=== PATIENT | female | born 1990 | race Two or more races ===

== ENCOUNTER 2025-04-23 12:14 | Inpatient (IN) | payer MEDICAID, SELFPAY ==
[2025-04-23] VITALS (26 sets, daily range): BP systolic 132–182; BP diastolic 84–107; PULSE 74–97; RESP 18–99; TEMP 36.8; BMI 33.0
--- NOTE | 2025-04-23 12:36 | XR_ITS ---
Examination: age Limited TECHNIQUE: Limited transabdominal sonographic images pelvis Date and time: April 15, 2025 1253 hours INDICATIONS: -induced hypertension today. FINDINGS: Viable intrauterine gestation vertex presentation Cardiac motion 152 BPM Amniotic fluid index 2.0 cm Estimated weight 3320.7 g Estimated gestational age 38 weeks 0 days IMPRESSION: Viable intrauterine gestation vertex presentation
[2025-04-23 13:02] LABS: Basophils % (Auto) 0 % (0-2.5); Eosinophils # (Auto) 0.3 Thou/mm3 (0.0-0.5); Eosinophils % (Auto) 3 % (0-10); Hemoglobin 12.4 g/dL (12.0-16.0); Immature Granulocytes % (Auto) 1 % (0-0); Immature Granulocytes Auto 0.04 Thou/mm3 (0.00-0.00); Lymphocytes % (Auto) 23 % (10-50); Mean Corpuscular HGB Conc 35.4 g/dl (31.0-37.0); Mean Corpuscular Hemoglobin 30.7 pg (25.0-35.0); Mean Corpuscular Volume 87 fL (80-100); Monocytes # (Auto) 0.9 Thou/mm3 (0.0-0.8); Monocytes % (Auto) 10 % (0-12); Neutrophils # (Auto) 5.6 Thou/mm3 (1.8-7.7); Neutrophils % (Auto) 63 % (37-80); Nucleated Red Blood Cell % 0 /100 WBC (0); Platelet Count 225 Thou/mm3 (140-440); RDW Standard Deviation 44.7 fL (36.4-46.3); Red Blood Count 4.04 Miln/mm3 (4.00-5.20); White Blood Count 8.9 Thou/mm3 (3.6-11.0)
[2025-04-23 13:19] LABS: Alanine Aminotransferase 13 U/L (10-49); Albumin, Serum 3.9 gm/dL (3.5-5.0); Albumin/Globulin Ratio 1.3 (1.2-2.2); Alkaline Phosphatase 124 U/L (46-116); Anion Gap 12 (7-16); Aspartate Amino Transferase 21 U/L (0-34); BUN/Creatinine Ratio 13 Ratio (12-20); Bilirubin,Total 0.2 mg/dL (0.3-1.2); Blood Urea Nitrogen 9 mg/dL (9-23); Calcium 9.5 mg/dL (8.3-10.6); Calcium (Corrected) 9.6 mg/dL (8.5-10.1); Carbon Dioxide 20.7 mMol/L (20.0-31.0); Chloride 106 mMol/L (98-107); Creatinine (Component) 0.7 mg/dL (0.6-1.3); Estimated Creatinine Clearance 124.5 mL/min (>60); Glucose 88 mg/dL (74-106); LDH (Lactate Dehydrogenase) 192 U/L (120-246); Osmolality,Calculated 275 (275-295); Potassium 3.8 mMol/L (3.4-5.1); Sodium 139 mMol/L (136-145); Total Protein 6.9 gm/dL (5.7-8.2); Uric Acid 5.3 mg/dL (3.1-7.8); eGFR > 60 See Note
[2025-04-23 13:20] LABS: Fibrinogen 494 mg/dL (175-375); INR 0.9 (0.9-1.3); Partial Thromboplastin Time 26.4 Seconds (22.0-36.0); Prothrombin Time 10.3 Seconds (9.0-12.2)
[2025-04-23] MEDS: RINGERS LACTATED 1000 ML 1,000 ML 100 ML IV ×2 (13:52→18:33)
[2025-04-23 14:09] LABS: Collection Type, Urine Clean Catch
[2025-04-23] MEDS: MISOPROSTOL 50 mCg TABLET PO ×3 (14:26→23:03)
[2025-04-23] MEDS: LABETALOL 100 MG TABLET PO (14:26)
[2025-04-23 14:34] LABS: Amorphous Crystals,Urine Present (Absent); Bacteria,Urine 1+; Bilirubin,Urine Negative (Negative); Blood,Urine Negative (Negative); Calcium Oxalate Crystals,Urine Rare; Clarity,Urine Clear (Clear/Hazy); Color,Urine Yellow (Lt Yel-Yel); Glucose, Urine Negative (Negative); Ketones,Urine Negative (Negative); Leukocyte Esterase,Urine Positive (Negative); Nitrite,Urine Negative (Negative); PH,Urine 6.5 (5.0-7.0); Protein,Urine Negative (Neg - Trace); RBC,Urine 6 /hpf (0-3); Specific Gravity,Urine 1.024 (1.001-1.035); Squamous Epithelial Cell,Urine 13 /hpf (0-5); Urobilinogen,Urine Negative mg/dL (0.0-1.0); WBC,Urine 3 /hpf (0-5)
[2025-04-23 14:50] LABS: Syphilis Nonreactive (Nonreactive)
--- NOTE | 2025-04-23 18:34 | ESHP_ITS ---
Documentation for date of: 04/23/25 OB Labor/Induct. HPI History of Present Illness Chief complaint: Patient sent over from office for elevated blood pressures : 5 Para: 3 Term pregnancies: 3 pregnancies: 0 Living children: 3 History of Abortions: Spontaneous and Elective: 1 History of Vaginal deliveries: 3 History of sections: No History of : No RONEY: 05/11/25 Gestational Age (weeks): 37 Gestational Age (days): 3 Indication for induction: other (Elevated blood pressures in OB triage, JAMILAH of 2) History of present illness: Patient is a 34-year-old -0-1-3 all care uncomplicated with [facility] sent over from the office one of the midwives for elevated blood pressures in the office. On presentation patient has a cough. She denied headaches changes in vision or right upper quadrant pain. Her blood pressures were quite elevated on admission in the 160s to 170s over 90s these did settle down on bedrest to the 150s over 90s. An ultrasound was called for for position weight and fluid and her JAMILAH was found to be 2. She was admitted for induction of labor secondary to -induced hypertension at term and oligohydramnios. History of Present Dating criteria: LMP confirmed by 1st trimester US Adequate Care: Yes Ultrasounds: normal mid trimester US Obstetrical complications: preeclampsia Medical complications: none Labs Maternal Blood Type: O Pos Labs: Positive: Group Beta Strep, Negative: RPR, Hepatitis B, Rubella Titre (Rubella nonimmune), HIV, Chlamydia and Gonorrhea and Unknown: Herpes Type 1 and Herpes Type 2 Past Medical History Surgical History SURGICAL: Negative Section Meds Home Medications and Allergies Allergies Allergy/AdvReac Type Severity Reaction Status Date / Time No Known Allergies Allergy Verified 08/10/23 00:05 OB Exam Physical Exam Vital signs: Temp Pulse Resp BP 98.3 F 87 18 142/92 H 04/23/25 12:22 04/23/25 18:24 04/23/25 12:22 04/23/25 18:24 Detailed Labor and Delivery Exam Effacement (%): 70 Cervix position: posterior station: -2 Consistency: medium Presentation: Vertex Membranes: intact Baseline heart rate: 150 monitor accelerations: 15x15 monitor decelerations: None nursing home variability: Moderate (11-25) Contraction frequency (min): Irregular Tachysystole: No Contraction intensity: Mild OB Results Labs 04/23/25 12:50 04/23/25 12:50 Labs: Short CBC 04/23/25 Range/Units 12:50 WBC 8.9 (3.6-11.0) Thou/mm3 Hgb 12.4 (12.0-16.0) g/dL Hct 35.0 L (36.0-46.0) % Plt Count 225 (140-440) Thou/mm3 BMP 04/23/25 12:50 Sodium 139 Potassium 3.8 Chloride 106 Carbon Dioxide 20.7 BUN 9 Creatinine 0.7 Glucose 88 Calcium 9.5 Liver Function 04/23/25 Range/Units 12:50 Total Bilirubin 0.2 L (0.3-1.2) mg/dL AST 21 (0-34) U/L ALT 13 (10-49) U/L Alkaline Phosphatase 124 H (46-116) U/L Albumin 3.9 (3.5-5.0) gm/dL Urine 04/23/25 Range/Units 13:24 Urine Color Yellow (Lt Yel-Yel) Urine Clarity Clear (Clear/Hazy) Urine pH 6.5 (5.0-7.0) Ur Specific [place] 1.024 (1.001-1.035) Urine Protein Negative (Neg - Trace) Urine Glucose (UA) Negative (Negative) OB Assessment & Plan Assessment and Plan (1) Supervision of high risk in third trimester: Status: Acute (2) Preeclampsia: Status: Acute Assessment and plan: Induction of labor for elevated blood pressures and oligohydramnios (3) Oligohydramnios antepartum: Status: Acute (4) Persistent cough for 3 weeks or longer: Status: Acute Assessment and plan: Patient states her COVID and flu swabs have been negative. She has not been treated with a Z-Adam yet. Robitussin is not effective. Will order a Z-Adam, TB test, valley fever test, Robitussin AC, and breathing treatment. Will order a chest x-ray . Additional Plan Induction method: per misoprostol protocol Plan: induction and GBS prophylaxis tx (2) Preeclampsia Qualifiers: Trimester: third trimester Qualified Code(s): O14.93 - Unspecified pre- eclampsia, third trimester (3) Oligohydramnios antepartum Qualifiers: Fetus number: single or unspecified fetus Qualified Code(s): O41.00X0 - Oligohydramnios, unspecified trimester, not applicable or unspecified
[2025-04-23] MEDS: guaiFENesin/COD SYRUP 5 ML UDC PO (19:52)
[2025-04-24] VITALS (220 sets, daily range): BP systolic 106–171; BP diastolic 59–104; PULSE 60–100; RESP 18–20; TEMP 36.6–36.8; O2SAT 87–100
[2025-04-24] MEDS: guaiFENesin/COD SYRUP 5 ML UDC PO ×3 (00:57→20:38)
[2025-04-24] MEDS: MISOPROSTOL 50 mCg TABLET PO (03:17)
[2025-04-24] MEDS: LABETALOL 100 MG TABLET PO ×2 (04:04→20:38)
[2025-04-24 06:07] LABS: Quantiferon-TB* See Sep Rpt
[2025-04-24] MEDS: Ampicillin Inj 2,000 MG in SODIUM CHLORIDE 0.9% (POP) 100 ML 200 MG IV (08:20)
[2025-04-24] MEDS: AZITHROMYCIN 250 MG TABLET 500 MG PO (09:22)
[2025-04-24] MEDS: fentaNYL CIT INJ 50 mCg/ML AMP 2ML 100 MCG IVP (09:49)
[2025-04-24 11:57] LABS: Cocci Serology, IgM Positive (Negative)
[2025-04-24 11:58] LABS: Cocid Sro, CF/ID (UCD) NO CHG* See Sep Rpt
[2025-04-24] MEDS: Ampicillin Inj 1,000 MG in SODIUM CHLORIDE 0.9% (Popper) 50 ML 50 MG IV ×2 (12:30→16:31)
[2025-04-24] MEDS: RINGERS LACTATED 1000 ML 1,000 ML 100 ML IV ×2 (14:12→18:43)
[2025-04-24] MEDS: OXYTOCIN in NS 30 units 30 UNIT/500 ML BAG IV (16:49)
--- NOTE | 2025-04-24 19:25 | PC.NURSE ---
Dr. Harper made aware of Internal Medicine consult, states she will speak with team regarding consult.
[2025-04-24] MEDS: MISOPROSTOL 200 mCg TABLET 800 MCG PR (21:43)
[2025-04-24] MEDS: TRANEXAMIC ACID 1,000 MG IVPB 1,000 MG/100 ML BAG 200 MG IV ×2 (21:44→23:11)
[2025-04-24] MEDS: OXYTOCIN INJ 10 UNIT/ML VIAL IM (21:45)
[2025-04-24] MEDS: OXYTOCIN in NS 20 units 20 UNIT/1,000 ML BAG 125 UNIT IV (22:21)
--- NOTE | 2025-04-24 22:39 | PD.LDDELS ---
Data ([place]) Data Hx Section: No : 5 Term: 3 : 0 Livin Abortions: Spontaneous & Theraputic: 1 Delivery Data ([place]) Labor Data Initiation of labor: Induction Induction/Augmentation Agent: Cytotec-PO and Pitocin ROM date: 04/24/25 ROM time: 20:50 Amniotic membrane rupture type: Spontaneous Amniotic fluid description: Clear and Blood Tinged Delivery Data EDC: 05/11/25 EDC calculated by:: LMP/early US confirmation Date of arrival to unit: 04/23/25 Time of arrival to unit: 13:06 Onset of labor date: 04/24/25 Onset of labor time: 10:00 Complete dilation date: 04/24/25 Complete dilation time: 21:10 delivery date: 04/24/25 [place] delivery time: 21:41 Gestational age (weeks): 37 Gestational age (days): 4 Placenta delivery date: 04/24/25 Placenta delivery time: 21:46 Stage 1 total time: Labor - Stage 1 Duration 11 hours and 10 minutes Delivered by: Iker Morris Delivery nurse: alberto worley [facility] nurse: roman worley Sinter Machine Operator at delivery: No Support person(s) at delivery: Hira father of baby holland Grandmother Other staff at delivery: Abigail WORLEY Delivery Method Delivery method: Normal Vaginal Delivery Presentation: Vertex position: OA Anesthesia Type Anesthesia Type: Epidural Delivery Room Medications Delivery room medications: Pitocin 10 u IM, Pitocin 20 u IV and Cytotec 800 MD Placenta Placenta delivery description: Spontaneous Cord blood sent to lab: Yes cord blood collection: Cord Blood Type Episiotomy Episiotomy description: None Perineal repair Sutures used for repair: 3.0 Vicryl (small brii) EBL Estimated blood loss (ml): 400 Umbilical Cord cord description: 3 Vessels, Nuchal Cord and Loose [place] Data ([place]) [place] Data 's gender: Male Identification band number: [id number] weight (gms): 3190 g Weight (pounds): 7 lbs and 0.5 ozs 1 minute: 7 5 minutes: 9
[2025-04-25] VITALS (10 sets, daily range): BP systolic 119–138; BP diastolic 71–85; PULSE 65–85; RESP 17–18; TEMP 36.6–36.9; O2SAT 97–98
[2025-04-25] MEDS: BENZO/LANO/ALOE (Dermoplast) 60 GM CAN 1 SPRAY TOP (01:07)
[2025-04-25] MEDS: IBUPROFEN TAB 400 MG TABLET 800 MG PO ×3 (01:07→20:14)
[2025-04-25] MEDS: ACETAMINOPHEN 325 MG TABLET 650 MG PO ×2 (01:29→07:22)
[2025-04-25 05:04] LABS: Basophils % (Auto) 0 % (0-2.5); Eosinophils % (Auto) 0 % (0-10); Hematocrit 31.7 % (36.0-46.0); Hemoglobin 10.7 g/dL (12.0-16.0); Immature Granulocytes % (Auto) 1 % (0-0); Immature Granulocytes Auto 0.08 Thou/mm3 (0.00-0.00); Lymphocytes # (Auto) 2.5 Thou/mm3 (1.0-4.8); Lymphocytes % (Auto) 16 % (10-50); Mean Corpuscular HGB Conc 33.8 g/dl (31.0-37.0); Mean Corpuscular Hemoglobin 30.3 pg (25.0-35.0); Mean Corpuscular Volume 90 fL (80-100); Monocytes % (Auto) 7 % (0-12); Neutrophils % (Auto) 77 % (37-80); Nucleated Red Blood Cell % 0 /100 WBC (0); Platelet Count 201 Thou/mm3 (140-440); Red Blood Count 3.53 Miln/mm3 (4.00-5.20); White Blood Count 15.6 Thou/mm3 (3.6-11.0)
--- NOTE | 2025-04-25 07:38 | ESPR_ITS ---
Subjective Subjective Interval history: No complaints of pain. No dizziness. Bonding breast Exam Vital Signs Temp Pulse Resp BP Pulse Ox O2 Del Method 98.1 F 70 18 128/83 98 Room Air 04/25/25 04:51 04/25/25 04:51 04/25/25 04:51 04/25/25 04:51 04/25/25 04:51 04/25/25 04:51 Narrative Exam Vital signs stable. Blood pressure 128/83. Fundus firm below the umbilicus. Perineum is well-approximated minimal swelling. Small lochia. Uterus well involuted. Negative Homans' sign. 2+ DTRs. Objective Labs 04/25/25 04:42 04/23/25 12:50 Labs: Laboratory Results - last 24 hr 04/24/25 04/25/25 05:30 04:42 WBC 15.6 H D RBC 3.53 L Hgb 10.7 L Hct 31.7 L MCV 90 MCH 30.3 MCHC 33.8 RDW Std Deviation 48.0 H Plt Count 201 Neut % (Auto) 77 Lymph % (Auto) 16 [place] % (Auto) 7 Eos % (Auto) 0 Baso % (Auto) 0 Neut # (Auto) 12.0 H Lymph # (Auto) 2.5 [place] # (Auto) 1.0 H Eos # (Auto) 0.0 Baso # (Auto) 0.0 Immature Gran # (Auto) 0.08 H Absolute Nucleated RBC 0.00 Immature Gran % 1 H Nucleated RBC % 0 [place] IgM Ab Positive A Assessment & Plan Problem List (1) Supervision of high risk in third trimester: Status: Acute (2) Preeclampsia: Status: Acute (3) Oligohydramnios antepartum: Status: Acute (4) Persistent cough for 3 weeks or longer: Status: Acute Assessment Comment Assessment comment: 24 hr pp Plan Comment Plan Comment: monitor for s/s of PIH, increase fluid, discharge home in AM. continue PNV, tylenol or ibuprophen as needed for discomfort Time Spent With Patient Time: Total time spent is greater than 50% in coordination of care (as documented) at patient's floor/unit and/or counseling patient:
[2025-04-25] MEDS: guaiFENesin/COD SYRUP 5 ML UDC PO ×2 (12:34→20:13)
[2025-04-25] MEDS: DOCUSATE SOD 100 MG CAPSULE PO (20:13)
[2025-04-26] VITALS: BP 113/74; PULSE 58; RESP 18; TEMP 36.8; O2SAT 96
[2025-04-26] MEDS: IBUPROFEN TAB 400 MG TABLET 800 MG PO (04:07)
[2025-04-26 04:10] VITALS: BP 111/73; PULSE 64; RESP 18; TEMP 36.5; O2SAT 97
[2025-04-26 08:00] VITALS: BP 134/87; PULSE 79; RESP 18; TEMP 36.6; O2SAT 96
--- NOTE | 2025-04-26 08:25 | PD.LDPPPRG ---
Subjective Subjective Interval history: Doing well. Bonding and breast-feeding. Denies PIH complaints. No complaints of dizziness or pain. Exam Vital Signs Temp Pulse Resp BP Pulse Ox O2 Del Method 97.7 F 64 18 111/73 97 Room Air 04/26/25 04:10 04/26/25 04:10 04/26/25 04:10 04/26/25 04:10 04/26/25 04:10 04/26/25 04:10 Narrative Exam Vital signs are stable. Afebrile. Her blood pressure 111/73. Negative Homans' sign. 2+ DTRs. Uterus firm below umbilicus. Perineum is intact no swelling. Small lochia. Uterus well involuted. Objective Labs 04/25/25 04:42 04/23/25 12:50 Assessment & Plan Problem List (1) Supervision of high risk in third trimester: Status: Acute (2) Preeclampsia: Status: Acute (3) Oligohydramnios antepartum: Status: Acute (4) Persistent cough for 3 weeks or longer: Status: Acute Assessment and plan: 24 hr pp Plan Comment Plan Comment: Discharge home with baby. Continue vitamins and iron. Tylenol or ibuprofen for pain. Discussed danger signs and symptoms and ER precautions. Discussed parameters. Discussed signs and symptoms of infection. Increase fluids. Increase rest. Monitor for PIH symptoms and return to ER if she has any present. Make an appointment with provider in 1 week for visit and BP check. And schedule an appointment in a week with family practice for valley fever. Time Spent With Patient Time: Total time spent is greater than 50% in coordination of care (as documented) at patient's floor/unit and/or counseling patient:
--- NOTE | 2025-04-26 08:27 | ESDS_ITS ---
DS: Providers Provider Date of admission: 04/23/25 13:06 Primary care physician: Physician No Primary/Family Admitting Provider: Amelia Lyons MD ([facility]) Attending Provider on Admission: Tom Skaggs MD Consults: 04/25/25 00:02 Referral Routine Comment: Attending Provider on DC: Ana Morris CNM Discharging Provider: Ana Morris CNM DS: Diagnosis Problem List Completed Was Problem List Reviewed/Reconciled?: Yes Summary/Hosp Course Brief History: Patient is a 34-year-old -0-1-3 all care uncomplicated with [facility] sent over from the office one of the midwives for elevated blood pressures in the office. On presentation patient has a cough. She denied headaches changes in vision or right upper quadrant pain. Her blood pressures were quite elevated on admission in the 160s to 170s over 90s these did settle down on bedrest to the 150s over 90s. An ultrasound was called for for position weight and fluid and her JAMILAH was found to be 2. She was admitted for induction of labor secondary to -induced hypertension at term and oligohydramnios. Peripartum Data Delivery Method: Normal Vaginal Delivery Episiotomy Description: None Laceration Description: yes (3 stitches skall 1st brii) complications: none Time Spent with Patient Time attestation: Total time spent providing and/or coordinating discharge services: Exam Vital Signs Temp Pulse Resp BP Pulse Ox O2 Del Method 97.7 F 64 18 111/73 97 Room Air 04/26/25 04:10 04/26/25 04:10 04/26/25 04:10 04/26/25 04:10 04/26/25 04:10 04/26/25 04:10 Discharge Plan Plan Patient Disposition: HOME (Self Care) Patient condition on transfer: Stable Prescriptions/Referrals Referrals: No Primary/Family,Physician [Primary Care Provider] - Patient/Caregiver Discharge Instructions Discharge Activity: resume usual activities Print Language: Malaysian Activity Restrictions/Additional Instructions: Discharge home with baby. Continue vitamins and iron. Tylenol ibuprofen for pain. Discussed imaging signs and symptoms and ER precautions with parameters. Discussed signs symptoms of infection. I reviewed PIH precautions and symptoms with patient. She is to return to the ER with a headache or any other signs of PIH. Schedule with provider for 1 week BP check. Schedule with family practice at [facility] for valley fever Stand Alone Forms: Norma Award Info., Patient Portal Info Letter Planned Discharge Date 04/26/25
[2025-04-26] MEDS: guaiFENesin/COD SYRUP 5 ML UDC PO (08:44)
[2025-04-26] MEDS: ACETAMINOPHEN 325 MG TABLET 650 MG PO (08:44)
[2025-04-26] MEDS: DOCUSATE SOD 100 MG CAPSULE PO (08:44)
== END 2025-04-26 11:28 | disposition home or self-care (01) | DRG 560 ==
LOC: S4SX 04-24 22:09 → S4NX 04-25 02:58
PROVIDERS: Advanced Practice Midwife; Admitting Provider Obstetrics & Gynecology; Visit Provider Specialist
DX: O14.94 Unspecified pre-eclampsia, complicating childbirth (principal); O41.03X0 Oligohydramnios, third trimester, not applicable or unspecified; Z37.0 Single live birth; Z3A.37 37 weeks gestation of pregnancy; O69.81X0 Labor and delivery complicated by cord around neck, without compression, not applicable or unspecified; R05.3 Chronic cough; O26.893 Other specified pregnancy related conditions, third trimester
CPT/HCPCS: 36415; 59409; 76815; 80053; 81001; 83615; 84550; 85025; 85384; 85610; 85730; 86480; 86635; 86780; 86850; 86900; 86901; 94762; J0290; J2590; J2795; J3010; J3490; J7050; J7120; S0191; A9270